=== PATIENT | female | born 1965 | race Caucasian/White ===

== ENCOUNTER → 2024-11-12 14:29 | Outpatient (REF) | payer OTHER, SELFPAY | LOC: HWWDC 14:29 | PROVIDERS: ATTENDING PHYSICIAN Hospitalist | DX: Z12.31 Encounter for screening mammogram for malignant neoplasm of breast (principal) | CPT/HCPCS: 77063; 77067 ==

== ENCOUNTER 2024-11-26 06:26 | Day surgery (SDC) | payer OTHER, SELFPAY | END 2024-11-26 15:07 | disposition home or self-care (01) | LOC: GI 06:26 | PROVIDERS: ATTENDING PHYSICIAN Internal Medicine Gastroenterology | DX: Z12.11 Encounter for screening for malignant neoplasm of colon (principal); D12.2 Benign neoplasm of ascending colon; Z83.719 Family history of colon polyps, unspecified | CPT/HCPCS: 45385; 88305 ==